=== PATIENT | female | born 1955 | race Caucasian/White ===

== ENCOUNTER 2019-03-01 08:37 | Inpatient (IN) | payer MEDICARE, BC ==
[2019-02-18 12:17] LABS: CLARITY,URINE SLIGHTLY CLOUDY (Clear); COLOR,URINE YELLOW (Yellow); GLUCOSE, URINE NEGATIVE (Neg); KETONES,URINE NEGATIVE (Neg); LEUKOCYTE ESTERASE ,URINE NEGATIVE (Neg); NITRITES, URINE POSITIVE (Neg); OCCULT BLOOD,URINE NEGATIVE (Neg); PH,URINE 5.5 (4.8-8.0); PROTEIN,URINE NEGATIVE (Neg); UA COLLECTION TYPE CLN CATCH MIDSTREAM; UROBILINOGEN,URINE 0.2 E.U/dL (0.2-1.0)
[2019-02-18 12:25] LABS: PRE OP PROTIME 10.1 SECONDS (9.0-12.0)
[2019-02-18 12:27] LABS: ALBUMIN 4.4 G/DL (3.4-5.0); ALBUMIN/GLOBULIN RATIO 1.3 (1.1-1.5); ALKALINE PHOSPHATASE 67 IU/L (46-116); BLOOD UREA NITROGEN 15 MG/DL (7-18); BUN/CREATININE RATIO 18.5 (6.6-38.0); CALCIUM 10.4 MG/DL (8.5-10.1); CHLORIDE 105 MMOL/L (99-107); CREATININE 0.81 MG/DL (0.40-0.90); PRE OP ALT 25 U/L (30-65); PRE OP ANION GAP 6 (8-16); PRE OP AST 18 U/L (10-37); PRE OP BILIRUB, TOTAL 0.3 MG/DL (0.0-1.0); PRE OP GLUCOSE 94 MG/DL (70-104); PRE OP POTASSIUM 4.6 MMOL/L (3.4-5.1); PRE OP SODIUM 139 MMOL/L (135-145); TOTAL PROTEIN 7.7 G/DL (6.4-8.2); eGFR 71 ML/MIN
[2019-02-18 12:30] LABS: BASOPHILS % (AUTO) 0.7 % (0-1); EOSINOPHILS # (AUTO) 0.1 X10'3 (0-0.9); EOSINOPHILS % (AUTO) 1.5 % (0-6); LYMPHOCYTES # (AUTO) 1.3 X10'3 (1.1-4.8); LYMPHOCYTES % (AUTO) 23.4 % (21-51); MEAN CORPUSCULAR HGB CONC 33.4 g/dL (33.0-36.5); MEAN CORPUSCULAR VOLUME 95.8 FL (78-98); MEAN PLATELET VOLUME 7.9 FL (7.4-10.4); MONOCYTES # (AUTO) 0.6 X10'3 (0-0.9); MONOCYTES % (AUTO) 10.2 % (2-12); NEUTROPHILS # (AUTO) 3.7 X10'3 (1.8-7.7); NEUTROPHILS % (AUTO) 64.2 % (42-75); PRE OP HEMATOCRIT 39.6 % (35.0-45.0); PRE OP HEMOGLOBIN 13.2 g/dL (12.0-16.0); PRE OP PLATELET COUNT 302 X10'3 (140-440); RED BLOOD COUNT 4.13 X10'6 (4.20-5.60); RED CELL DISTRIBUTION WIDTH 13.5 % (11.5-14.5)
[2019-02-18 12:32] LABS: SQUAMOUS EPITHELIAL CELL,UR FEW /LPF (FEW)
[2019-02-18 12:33] LABS: BACTERIA,URINE 4+ /HPF (Neg); RBC,URINE NONE SEEN /HPF (0-2); WBC,URINE 0-4 /HPF (0-4)
[~2019-03-01] VITALS: Ht 167.6 cm; Wt 80.6 kg
[2019-03-01] VITALS (19 sets, daily range): BP systolic 89–136; BP diastolic 52–92
[~2019-03-01 08:37] MED LIST: ASPI-1264 PO; ATOR10TA70 PO; BUPR300T54 PO; CALC-159 PO; CHOL50004 PO; FAMO20TA8 PO; FISH1CAP15 PO; NAPR220C15 PO; PROG200C7 PO; SERT50TA10 PO; acetaminophen 325mg tablet PO ONE; cefazolin/dext.iso 2gm/100 ML IV ONE; celeCOXIB 100mg capsule PO ONE; famotidine 20mg tablet PO ONE; gabapentin 300mg capsule PO ONE; oxyCODONE SR 10mg (sust. release) tab PO ONE; ringers solution, lacted 1,000 ML IV SCH; tranexamic acid inj. 1,500 MG in normal saline 100ml IV soln 100 ML IV ONE
[2019-03-01] MEDS ORDERED: bacitracin inj 150,000 UNIT in sodium chloride irrig. sol 3,000 ML IR ONE (10:00)
[2019-03-01] MEDS ORDERED: tetracaine 1% (10mg/ml) pres. free inj. ONE (10:27)
[2019-03-01] MEDS ORDERED: fentaNYL/PF 50MCG/1 ML 2ML syringe ONE (10:31)
[2019-03-01] MEDS ORDERED: MIDAZolam 1mg/ml 10ml vial ONE (10:31)
[2019-03-01] MEDS ORDERED: ROPIVAcaine 0.5% (5mg/ml) 30ml vial ONE (10:38)
[2019-03-01] MEDS ORDERED: propofol inj 20 ML IV ONE (11:08)
[2019-03-01] MEDS ORDERED: ringers solution, lacted 1,000 ML IV SCH (11:26)
[2019-03-01] MEDS ORDERED: meperidine/PF 25mg/ml syringe IV PRN ×3 (11:30)
[2019-03-01] MEDS ORDERED: ondansetron/PF 4mg/2ml inj IV PRN (11:30)
[2019-03-01] MEDS ORDERED: proCHLORperazine 10 MG/2 ml inj IV PRN (11:30)
[2019-03-01] MEDS ORDERED: morphine 4 MG/ML inj SYRINge IV PRN ×2 (11:30)
[2019-03-01] MEDS ORDERED: ceFAZolin 1000mg inj ONE (11:57)
[2019-03-01] MEDS ORDERED: acetaminophen 325mg tablet PO PRN (12:25)
[2019-03-01] MEDS ORDERED: diphenhydrAMINE 25mg capsule PO PRN ×2 (12:25)
[2019-03-01] MEDS ORDERED: bisacodyl 10mg suppository rectal RC PRN (12:25)
[2019-03-01] MEDS ORDERED: magnesium hydroxide 30ml (MOM) UD suspension PO PRN (12:25)
--- NOTE | 2019-03-01 12:45 | NUR ---
Received from OR via bed, accompanied by Anesthesiologist. Report received. Initial physical assessment done and recorded.
[2019-03-01] MEDS: gabapentin 300mg capsule PO SCH ×2 (13:00→20:47)
--- NOTE | 2019-03-01 14:10 | NUR ---
Discharge criteria met, report to receiving floor. Transferred to room in stable condition.
--- NOTE | 2019-03-01 14:45 | NUR ---
RECEIVED REPORT FROM ERIC WEBB
[2019-03-01] MEDS: ceFAZolin 1GM/D5W- ADD-VANTAGE 50 ML IV SCH ×2 (16:27→23:19)
[2019-03-01] MEDS: potassium cl 20mEq in 1/2 NS 1,000 ML IV SCH ×2 (16:29→23:09)
[2019-03-01] MEDS: oxyCODONE/APAP 10/325mg tablet PO PRN ×2 (18:47→23:05)
[2019-03-01] MEDS: ascorbic acid 500mg tablet PO SCH (20:47)
[2019-03-01] MEDS: famotidine 20mg tablet PO SCH (20:47)
[2019-03-01] MEDS: sennosides 8.6mg tablet PO SCH (20:47)
[2019-03-01] MEDS: buPROPion SR 150mg tablet PO SCH (20:48)
[2019-03-01] MEDS: HYDROmorphone 1 mg/ml syringe IV PRN (20:54)
[2019-03-01] MEDS: ondansetron/PF 4mg/2ml inj IV PRN (23:10)
[2019-03-02] MEDS: HYDROmorphone 1 mg/ml syringe IV PRN ×2 (01:29→06:40)
[2019-03-02 02:06] VITALS: BP 113/67
[2019-03-02] MEDS: potassium cl 20mEq in 1/2 NS 1,000 ML IV SCH ×3 (04:21→21:15)
[2019-03-02] MEDS: oxyCODONE/APAP 10/325mg tablet PO PRN ×5 (04:39→21:13)
[2019-03-02] MEDS: ondansetron/PF 4mg/2ml inj IV PRN ×2 (04:41→11:56)
[2019-03-02 06:00] LABS: BASOPHILS % (AUTO) 0.3 % (0-1); EOSINOPHILS % (AUTO) 0.7 % (0-6); HEMATOCRIT 32.8 % (35.0-45.0); LYMPHOCYTES # (AUTO) 0.8 X10'3 (1.1-4.8); LYMPHOCYTES % (AUTO) 12.7 % (21-51); MEAN CORPUSCULAR HEMOGLOBIN 32.2 PG (27.0-31.0); MEAN CORPUSCULAR HGB CONC 33.5 g/dL (33.0-36.5); MEAN CORPUSCULAR VOLUME 96.1 FL (78-98); MEAN PLATELET VOLUME 7.8 FL (7.4-10.4); MONOCYTES # (AUTO) 0.6 X10'3 (0-0.9); MONOCYTES % (AUTO) 9.2 % (2-12); NEUTROPHILS # (AUTO) 4.8 X10'3 (1.8-7.7); NEUTROPHILS % (AUTO) 77.1 % (42-75); PLATELET COUNT 201 X10'3 (140-440); RED BLOOD COUNT 3.41 X10'6 (4.20-5.60); RED CELL DISTRIBUTION WIDTH 13.3 % (11.5-14.5); WHITE BLOOD COUNT 6.3 X10'3 (4.5-11.0)
[2019-03-02 06:18] LABS: INR 1.3 INR
--- NOTE | 2019-03-02 06:26 | NUR ---
Patient in room [facility] 4023. I have received report from JON Person and had the opportunity to ask questions and assume patient care.
--- NOTE | 2019-03-02 06:27 | NUR ---
Received report from Berkley WEBB
[2019-03-02 06:44] LABS: ANION GAP 7 (8-16); CHLORIDE 102 MMOL/L (99-107); POTASSIUM 4.1 MMOL/L (3.5-5.1); SODIUM 136 MMOL/L (135-145); TOTAL CARBON DIOXIDE 26.7 MMOL/L (24-32)
[2019-03-02 07:02] VITALS: BP 130/98
[2019-03-02] MEDS: atorvastatin 10mg tablet PO SCH (07:54)
[2019-03-02] MEDS: gabapentin 300mg capsule PO SCH ×3 (07:54→21:14)
[2019-03-02] MEDS: famotidine 20mg tablet PO SCH ×2 (07:55→21:14)
[2019-03-02] MEDS: multivitamins, therapeutics tablet PO SCH (07:56)
[2019-03-02] MEDS: buPROPion SR 150mg tablet PO SCH ×2 (07:56→21:13)
[2019-03-02] MEDS: ascorbic acid 500mg tablet PO SCH ×2 (07:56→21:13)
[2019-03-02] MEDS: sertraline 50mg tablet PO SCH (07:57)
[2019-03-02] MEDS: progesterone, micronized 100mg capsule PO SCH (07:58)
[2019-03-02 10:00] VITALS: BP 137/82
[2019-03-02] MEDS ORDERED: warfarin 5mg tablet PO ONE (10:00)
--- NOTE | 2019-03-02 12:08 | NUR ---
Problems reprioritized. Patient report given, questions answered & plan of care reviewed with JON Person.
--- NOTE | 2019-03-02 14:13 | NUR ---
Joint replacement consult: Pt seen by TRUMAN for written/verbal high protein ed. RD reviewed high protein needs for wound healing, immune strength, high protein foods, and protein supplementation options. RD contact information provided in case of further questions. Declines proteins at this time r/t low appetite and nausea post-op. Addendum: 03/02/19 at [address] Amended: Links added.
[2019-03-02 18:00] VITALS: BP 114/76
[2019-03-02] MEDS: celeCOXIB 100mg capsule PO SCH (21:13)
[2019-03-02] MEDS: sennosides 8.6mg tablet PO SCH (21:13)
[2019-03-02 22:00] VITALS: BP 92/63
[2019-03-03] MEDS: oxyCODONE/APAP 10/325mg tablet PO PRN ×2 (05:15→09:31)
[2019-03-03 06:00] VITALS: BP 120/72
--- NOTE | 2019-03-03 06:11 | NUR ---
Problems reprioritized. Patient report given, questions answered & plan of care reviewed with JON IRELAND.
--- NOTE | 2019-03-03 06:15 | NUR ---
Patient in room [facility]TH[facility] 4023. I have received report from MANISH WEBB and had the opportunity to ask questions and assume patient care.
[2019-03-03] MEDS: potassium cl 20mEq in 1/2 NS 1,000 ML IV SCH (06:44)
[2019-03-03 07:13] LABS: BASOPHILS % (AUTO) 0.4 % (0-1); EOSINOPHILS % (AUTO) 0.5 % (0-6); HEMATOCRIT 33.9 % (35.0-45.0); HEMOGLOBIN 11.4 g/dl (12.0-16.0); LYMPHOCYTES # (AUTO) 0.7 X10'3 (1.1-4.8); LYMPHOCYTES % (AUTO) 10.1 % (21-51); MEAN CORPUSCULAR HEMOGLOBIN 32.4 PG (27.0-31.0); MEAN CORPUSCULAR HGB CONC 33.6 g/dL (33.0-36.5); MEAN CORPUSCULAR VOLUME 96.2 FL (78-98); MEAN PLATELET VOLUME 7.7 FL (7.4-10.4); MONOCYTES # (AUTO) 0.8 X10'3 (0-0.9); MONOCYTES % (AUTO) 10.7 % (2-12); NEUTROPHILS # (AUTO) 5.5 X10'3 (1.8-7.7); NEUTROPHILS % (AUTO) 78.3 % (42-75); PLATELET COUNT 206 X10'3 (140-440); RED BLOOD COUNT 3.52 X10'6 (4.20-5.60); RED CELL DISTRIBUTION WIDTH 13.2 % (11.5-14.5)
[2019-03-03 07:26] LABS: INR 1.5 INR
[2019-03-03] MEDS ORDERED: ASPI-1264 PO (08:28)
[2019-03-03] MEDS: celeCOXIB 100mg capsule PO SCH (08:49)
[2019-03-03] MEDS: atorvastatin 10mg tablet PO SCH (08:50)
[2019-03-03] MEDS: gabapentin 300mg capsule PO SCH (08:51)
[2019-03-03] MEDS: famotidine 20mg tablet PO SCH (08:52)
[2019-03-03] MEDS: ascorbic acid 500mg tablet PO SCH (08:53)
[2019-03-03] MEDS: progesterone, micronized 100mg capsule PO SCH (08:53)
[2019-03-03] MEDS: sertraline 50mg tablet PO SCH (08:53)
[2019-03-03] MEDS: multivitamins, therapeutics tablet PO SCH (08:53)
[2019-03-03] MEDS: buPROPion SR 150mg tablet PO SCH (08:54)
[2019-03-03 10:00] VITALS: BP 105/58
[2019-03-03] MEDS ORDERED: warfarin 5mg tablet PO ONE (10:00)
--- NOTE | 2019-03-03 11:21 | NUR ---
Student documentation: I have reviewed all interventions, assessments performed and documented by Cady Rahman. Student Medication Administration: For this medication-pass time frame, all medication were reviewed, dispensed, administered and documented per hospital policy by Cady Rahman.
[2019-03-03] MEDS ORDERED: acetaminophen 325mg tablet PO PRN (12:25)
== END 2019-03-03 12:00 | disposition home health service (06) | DRG 470 ==
LOC: PAS IN 08:37 → EDSTATUS 10:45 → ORTHO 4S 14:20
PROVIDERS: ADMIT Specialist; ATTEND Specialist
PROC: 0SRB02Z Replacement of Left Hip Joint with Metal on Polyethylene Synthetic Substitute, Open Approach (ICD-10-PCS; principal; 2019-03-01 10:29)
DX: M16.12 Unilateral primary osteoarthritis, left hip (principal); D62 Acute posthemorrhagic anemia; E78.5 Hyperlipidemia, unspecified; Z96.641 Presence of right artificial hip joint; F32.9 Major depressive disorder, single episode, unspecified; J44.9 Chronic obstructive pulmonary disease, unspecified; K21.9 Gastro-esophageal reflux disease without esophagitis; Z96.653 Presence of artificial knee joint, bilateral; Z90.710 Acquired absence of both cervix and uterus; Z79.899 Other long term (current) drug therapy; Z79.82 Long term (current) use of aspirin; Z87.891 Personal history of nicotine dependence
CPT/HCPCS: 36415; 73502; 80051; 80053; 81001; 82948; 85025; 85610; 85730; 86885; 86900; 86901; 87070; 87077; 87088; 87186; 97110; 97116; 97530; A6253; A6449; A6455; A7000; C1758; C1776; G0378; J0690; J1170; J2250; J2405; J2704; J2795; J3010; J7030; J7120